=== PATIENT | male | born 1990 | race Caucasian/White ===

== ENCOUNTER 2018-04-03 03:20 | Emergency (ER) | payer SELFPAY ==
--- NOTE | 2018-04-03 03:54 | PDOC ---
History of Present Illness - General Chief Complaint: Injury Stated Complaint: FINGER INJURY History Source: Patient Exam Limitations: Language Barrier - History of Present Illness Initial Comments: 04/03/18 03:56 Pt is a previously healthy 27yo M presenting to ED with complaints of L 3rd digit pain and swelling. Pt said a few days ago he started to have pain in his L third digit at the tip and noticed the swelling 2 days ago. 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 He states he also uses cleaning chemicals without gloves, such as Windex. He denies fevers, chills, joint pains, abdominal pain. He has not had this problem before. He denies drug use and does not take medications. PMD: none PMH: none PSH: none Allergies: none Meds: none Social: smokes cigarettes Past History - Suicide/Smoking/Psychosocial Hx Smoking History: Current some day smoker Number of Cigarettes Smoked Daily: 4 Information on smoking cessation initiated: Yes Hx Alcohol Use: No Drug/Substance Use Hx: No *Physical Exam - Vital Signs Last Vital Signs Temp Pulse Resp BP Pulse Ox 98.1 F 84 17 126/86 100 04/03/18 03:38 04/03/18 03:38 04/03/18 03:38 04/03/18 03:38 04/03/18 03:38 Moderate Sedation - Procedure Monitoring Vital Signs: Procedure Monitoring Vital Signs Temperature 98.1 F 04/03/18 03:38 Pulse Rate 84 04/03/18 03:38 Respiratory Rate 17 04/03/18 03:38 Blood Pressure 126/86 04/03/18 03:38 O2 Sat by Pulse Oximetry (%) 100 04/03/18 03:38 Medical Decision Making - Medical Decision Making 04/03/18 03:59 Pt is a previously healthy 27yo M presenting to ED with complaints of L 3rd digit pain and swelling. Pt said a few days ago he started to have pain in his L third digit at the tip and noticed the swelling 2 days ago. 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 He states he also uses cleaning chemicals without gloves, such as Windex. He denies fevers, chills, joint pains, abdominal pain. He has not had this problem before. He denies drug use and does not take medications. He noticed that his nail started to change a week ago. Vitals: wnl PE: L third digit swelling at nail bed. No masses palpated. Slight tenderness laterally. No flunctuance, not warm. Pulp nontender and not erythematous. Nail has what looks like fungal changes. Low suspicion for paronychia at this time however can develop. Nothing to drain at this time. Pt is hemodynamically stable. No need for intervention at this time. Pt advised to do warm compresses and to come back to emergency room if pain gets worse, if swelling gets worse. Pt understood and agreed. *DC/Admit/Observation/Transfer Diagnosis at time of Disposition: Finger swelling - Discharge Dispostion Disposition: HOME Condition at time of disposition: Good Decision to Admit order: No - Referrals - Patient Instructions Additional Instructions: Usted fue visto aqu hoy para la hinchazn de los dedos. No parece que tengas woody infeccin en dorys momento. Recomiendo hacer compresas tibias (use woody toalla hmeda y tibia, aplquela sobre el dedo y presione hacia abajo) 3 o 4 veces al da todos los wray. Puede javier Tylenol o ibuprofeno para el dolor segn sea necesario. Usted puede comprar en el mostrador un esmalte de uas antimictico para la ua. Mantenga mccabe mano cubierta cuando est trabajando. Regrese a la narda de emergencias si la hinchazn empeora, el dolor empeora, no puede autism motor specialist el dedo, tiene fiebre o si se presenta algn sntoma nuevo. Avi You were seen here today for finger swelling. It does not look like you have an infection at this time. I recommend doing warm compresses (use a damp warm towel and apply it to the finger and press down) 3 or 4 times a day every day. You can take Tylenol or ibuprofen for pain as needed. You can buy over the counter antifungal nailpolish for the nail. Keep your hand covered when you are working. Come back to the emergency room if swelling gets worse, pain is worse, you are unable to move the finger, you develop fever, or if any new concerning symptom develops. Thank you Print Language: SPA - Post Discharge Activity
--- NOTE | 2018-04-03 04:07 | PDOC ---
Attending Attestation - Resident Resident Name: Raven Adam - ED Attending Attestation I have performed the following: I have examined & evaluated the patient, The case was reviewed & discussed with the resident, I agree w/resident's findings & plan, Exceptions are as noted - HPI HPI: 04/03/18 04:07 27M with pain and swelling to distal L D3 of hand that he noticed several days ago, no clear hx of trauma per pt - Physicial Exam PE: 04/03/18 04:08 Agree with exam as documented by resident - Medical Decision Making 04/03/18 04:08 Swelling around nail of digit, but no erythema, fluctuance, induration, pad of finger soft, non-tender No paronychia, no felon warm compresses, strict return instructions dc
[2018-04-03 04:24] VITALS: BP 126/86; PULSE 84; TEMP 98.1; BMI 27.6
== END 2018-04-03 04:53 | disposition home or self-care (01) ==
LOC: JER 03:20
DX: M79.89 Other specified soft tissue disorders (principal); F17.210 Nicotine dependence, cigarettes, uncomplicated
CPT/HCPCS: 99281-25